=== PATIENT | female | born 1975 | race American Indian/Alaskan Native ===

== ENCOUNTER 2020-08-09 04:48 | Emergency (ER) | payer OTHER ==
--- NOTE | 2020-08-09 08:11 | Event Note ---
ED Screening Note ED Screening Note: This initial assessment/diagnostic orders/clinical plan/treatment(s) is/are subject to change based on patients health status, clinical progression and re- assessment by fellow clinical providers in the ED. Further treatment and workup at subsequent clinical providers discretion. Patient/guardian urged not to elope from the ED as their condition may be serious if not clinically assessed and managed. Initial orders include: SEE PAPER CHART MSE OUT FOR DENTAL PAIN AT 0730
[2020-08-09 08:59] VITALS: BP 163/118
== END 2020-08-09 08:15 | disposition left against medical advice (07) ==
LOC: ED 04:48
DX: K08.89 Other specified disorders of teeth and supporting structures (principal); Z53.21 Procedure and treatment not carried out due to patient leaving prior to being seen by health care provider